=== PATIENT | male | born 1965 | race Caucasian/White ===

== ENCOUNTER 2017-04-17 19:31 | Emergency (ER) | payer OTHER ==
[~2017-04-17] VITALS: Ht 195.6 cm; Wt 99.8 kg
--- NOTE | 2017-04-17 19:45 | NUR ---
PT TO BED 3, BIB FAMILY. PT AMBULATED WITH STEADY GAIT, AAO X4. VSS, NAD NOTED, GLF 1HR DIRECT CUSTOMER SERVICE REPRESENTATIVE; LEFT FA ABRASION, HEAD WOUND. COMFORT MEASURES PROVIDED.
--- NOTE | 2017-04-17 19:50 | NUR ---
WOUND CARE DONE, PATIENT SLOAN PROCEDURE WELL.
--- NOTE | 2017-04-17 20:01 | NUR ---
LUDA BUTLER AT BEDSIDE.
[2017-04-17] MEDS ORDERED: TDAP [DIPH/PERTUSSIS/TET] 0.5 ML VIAL IM ONE ×2 (20:07→20:30)
[2017-04-17] MEDS ORDERED: ACETAMINOPHEN ES 500 MG TABLET ONE (20:07)
--- NOTE | 2017-04-17 20:29 | NUR ---
WOUND CARE DONE,DRESSING INTACT CLEAN, NO SIGNS OF BLEEDING. Patient discharged to home in stable condition. Written and verbal after care instructions given. Patient verbalizes understanding of instruction. PT ambulatory with a steady gait.
[2017-04-17] MEDS ORDERED: ACETAMINOPHEN ES 500 MG TABLET PO ONE (20:30)
[2017-04-17 20:31] VITALS: BP 145/90
== END 2017-04-17 20:32 | disposition home or self-care (01) ==
LOC: ER 19:32
DX: S50.812A Abrasion of left forearm, initial encounter (principal); I10 Essential (primary) hypertension; W01.198A Fall on same level from slipping, tripping and stumbling with subsequent striking against other object, initial encounter; Y93.89 Activity, other specified; Y92.89 Other specified places as the place of occurrence of the external cause; Y99.9 Unspecified external cause status
CPT/HCPCS: 90471; 90715; 99283; A4606; A6402 ×2; Z7610

== ENCOUNTER 2022-08-27 20:59 | Emergency (ER) | payer OTHER ==
[~2022-08-27] VITALS: Ht 195.6 cm; Wt 102.1 kg
--- NOTE | 2022-08-27 22:20 | NUR ---
BIBS FOR C/O ON AND OFF CP SICNE AM. -SOB, -N/V, +DIZZINESS. PATIENT IS AAOX4. ABLE TO MAKE NEEDS KNOWN. PLACED COMFORTABLY IN BED. ATTACHED TO MONITOR. VITALS CHECKED.
[2022-08-27] MEDS ORDERED: ASPIRIN 325 MG TABLET ONE (22:25)
[2022-08-27] MEDS ORDERED: ASPIRIN 325 MG TABLET PO ONE (22:30)
[2022-08-27 22:34] LABS: BASOPHILS # (AUTO) 0.1 K/uL (0.0-0.2); BASOPHILS % (AUTO) 0.5 % (0.0-2.0); EOSINOPHILS % (AUTO) 0.9 % (0.0-6.0); HEMATOCRIT 45 % (39-51); LYMPHOCYTES # (AUTO) 1.6 K/uL (0.8-4.8); LYMPHOCYTES % (AUTO) 14.1 % (20.0-44.0); MEAN CORPUSCULAR HGB CONC 33 g/dl (31.0-36.0); MEAN CORPUSCULAR VOLUME 85 fL (80-96); MONOCYTES # (AUTO) 0.8 K/uL (0.1-1.30); MONOCYTES % (AUTO) 7.3 % (2.0-12.0); NEUTROPHILS # (AUTO) 8.8 K/uL (1.8-8.9); NEUTROPHILS % (AUTO) 77.2 % (43.0-81.0); PLATELET COUNT (AUTO) 252 K/uL (150-450); RED BLOOD CELL COUNT(AUTO) 5.27 MIL/uL (4.5-6.0); WHITE BLOOD COUNT (AUTO) 11.4 K/uL (4.3-11.0)
--- NOTE | 2022-08-27 22:40 | NUR ---
WASTEWATER SUPERVISOR AT BEDSIDE
--- NOTE | 2022-08-27 22:40 | NUR ---
IV CANDIDA INSERTED ON LEFT AC G18. BLOOD DRAWN AND SENT TO LAB.
[2022-08-27 22:55] LABS: ALANINE AMINOTRANSFERASE 44 U/L (12-78); ALBUMIN 4.1 g/dL (3.4-5.0); ALKALINE PHOSPHATASE 75 U/L (46-116); ASPARTATE AMINOTRANSFERASE 28 U/L (15-37); BILIRUBIN,DIRECT 0.1 mg/dL (0.0-0.2); BILIRUBIN,TOTAL 0.3 mg/dL (0.2-1.0); CALCIUM, SERUM 8.9 mg/dL (8.5-10.1); CARBON DIOXIDE 26 mmol/L (21-32); CHLORIDE 104 mmol/L (98-107); CREATININE 1.1 mg/dL (0.6-1.3); GLUCOSE 133 mg/dL (74-106); POTASSIUM 3.2 mmol/L (3.5-5.1); SODIUM SERUM 138 mmol/L (136-145); TOTAL PROTEIN, SERUM 7.3 g/dL (6.4-8.2); UREA NITROGEN, BLOOD 20 mg/dL (7-18)
--- NOTE | 2022-08-28 00:30 | NUR ---
HEALTH SPA MANAGER AT BEDSIDE FOR REPEAT TROP
--- NOTE | 2022-08-28 01:34 | NUR ---
IV CANNULA REMOVED
--- NOTE | 2022-08-28 01:34 | NUR ---
Patient discharged to home in stable condition. Written and verbal after care instructions given. Patient verbalizes understanding of instruction.
[2022-08-28 01:40] VITALS: BP 141/76
== END 2022-08-28 01:40 | disposition home or self-care (01) ==
LOC: ER 21:01
DX: R07.89 Other chest pain (principal); F41.9 Anxiety disorder, unspecified; I10 Essential (primary) hypertension
CPT/HCPCS: 36415; 71045-TC; 80048-TC; 80076-TC; 84484-TC; 85025-TC; 85730-TC

== ENCOUNTER 2025-05-05 11:35 | Emergency (ER) | payer BC, MEDICAID ==
[~2025-05-05] VITALS: Ht 195.6 cm; Wt 102.1 kg
[2025-05-05] MEDS ORDERED: oxyCODONE/APAP (5/325 MG) 1 UDTAB TABLET ONE (12:27)
[2025-05-05] MEDS: oxyCODONE/APAP (5/325 MG) 1 UDTAB TABLET PO ONE (12:29)
[2025-05-05 14:18] VITALS: BP 131/79; TEMP 98.4; O2SAT 100
== END 2025-05-05 14:20 | disposition home or self-care (01) ==
LOC: ER 11:43
DX: S09.90XA Unspecified injury of head, initial encounter (principal); I10 Essential (primary) hypertension; W19.XXXA Unspecified fall, initial encounter; Y93.89 Activity, other specified; Y92.89 Other specified places as the place of occurrence of the external cause; Y99.8 Other external cause status
CPT/HCPCS: 70450-TC